=== PATIENT | female | born 1955 | race Caucasian/White ===

== ENCOUNTER 2025-02-23 16:20 | Inpatient (IN) ==
--- OUTSIDE RECORDS SUMMARY | 2025-02-23 16:23 | External Medical Summary | Summary of Care ---
Author Name Unknown Organization [facility] Address [address] [address] Phone [phone] Care Team Providers Care Molding Associate Name Role Phone Caitlyn Samuel PA-C Primary Care Provider [phone] Encounter Details Date Type Department Care Team (Late st Contact Info) Description 12/03/2024 Population Health External Data Unspecified Department Allergies Active Allergy Reactions Criticality Noted Date Comments Pollen Other (Please comment) 09/06/2022 Runny nose and stuffiness from grass documented as of this encounter (statuses as of 12/03/2024) Medications Cetirizine HCl 10 MG Oral Tablet Chewable Take 1 Tablet by mouth in the morning. Active Nystatin 477039 UNIT/GM External Powder (Nystop)Indicat ions:Candidal intertrigo Apply topically to affected area 3 times a day. Apply to skin under R breast 180 g 1 3 Active Fluticasone Propionate 50 MCG/ACT Nasal Suspension (Flonase)Indica tions:Dysfuncti on of left eustachian tube Administer 2 Sprays into each nostril in the morning. 16 g 1 4 Active predniSONE 10 MG Oral Tablet (Deltasone)Lori cations:Dysfunc tion of left eustachian tube Take 5 tabs for 2 days, 4 tabs for 2 days, 3 tabs for 2 days, 2 tabs for 2 days 1 tab for 2 days 30 Tablet 4 Active Additional Information Patient not taking.Reported on 04/12/2024 Montelukast Sodium 10 MG Oral Tablet (Singulair)Lori cations:Dysfunc tion of left eustachian tube Take 1 Tablet by mouth in the morning. 30 Tablet 4 Active documented as of this encounter (statuses as of 12/03/2024) Active Problems Problem Noted Date Diagnosed Date History of malignant melanoma 03/29/2023 Gastroesophageal reflux disease 12/12/2022 Obesity (BMI 30-39.9) 01/23/2012 Overview (01/23/2012): bmi= 36.41 01/23/12 Chronic rhinitis 01/23/2012 Chronic sinusitis 01/23/2012 Family history of diabetes mellitus 11/30/2009 Metabolic syndrome 11/30/2009 Toxic effect of venom 04/03/2009 Overview (08/16/2016): ICD-10 update of inactive term Compound nevus, lentigo like, Lateral lt mid chel k 02/05/01 08/13/2002 Cicatrix c persistent nevus, lateral lt mid back 02/12/02 08/13/2002 documented as of this encounter (statuses as of 12/03/2024) Resolved Problems Problem Noted Date Diagnosed Date Resolved Date Adrenal incidentaloma 08/12/20222022 Anxiety state 02/16/2016 03/29/2023 Cough 01/23/2012 05/24/2015 Obesity, Class II, BMI 35-39 .9, isolated (see actual BMI) 04/26/2010 02/22/2018 Overview (04/26/2010): Per Obesity Protocol, #19 TICK BITE, RIGHT FOREARM 04/03/200910/2023 ADVANCE DIRECTIVE INFORMATION 05/03/2005 09/16/2024 Overview (05/03/2005): No, Advance Directive brochure given to patient. Major depressive disorder, r ecurrent episode, mild 09/03/2003 03/29/2023 Malignant melanoma of lower extremity 08/13/2002 09/19/2022 Compound nevus, lentigo like , Medial lt mid back 02/05/01 08/13/2002 09/19/2022 Overview (09/19/2022): duplicate Malignant melanoma of lower extremity 10/13/2000 03/29/2023 documented as of this encounter (statuses as of 12/03/2024) Immunizations Name Administration Dates Next Due COVID-19 mRNA, LNP-s, No Pre serve, 2-Dose Series ([employer]) 08/27/2021,02/02/2021,01/12/2021 COVID-19, MRNA-LNP, PF, 30 M CG/0.3 mL, 12 YRS AND ABOVE, IM [facility] 09/12/2023 Covid-19, Mrna, Lnp-s, Pf, B ivalent, 30 Mcg, IM, 12 yrs and above ([employer]) 09/02/2022 Seasonal Influenza Vac., MDV , IM, 0.5 mL (Fluzone) 08/26/2014,11/12/2013,12/05/2012,09/13 Seasonal Influenza Virus Vac cine, Unspecified Formulation 08/15/2022,09/16/2021,08/25/2020,08/27,08/21/2018,08/22/2017,09/27/2016 ,09/15/2015,08/26/2014,11/12/2013,11/14,09/13/2011 Seasonal Influenza, High Dos e, Trivalent, PF, IM (Fluzone HD) 09/05/2024 Seasonal Influenza, PF, 6 M & above, IM , (FluLaval or Fluzone) 08/25/2020,08/27/2019,08/21/2018,08/2208/22/2018 Seasonal Influenza, Quadriva lent Hd (Fluzone Hd) 08/18/2023,08/15/2022,09/16/2021 Seasonal Influenza, Quadriva lent, No Preserve, IM 09/27/2016,09/15/2015 documented as of this encounter Social History Tobacco Use Types Packs/Day Years Used Date Smoking Tobacco: Never Passive Smoke Exposure: Never Smokeless Tobacco: Never Alcohol Use Standard Drinks/Week Comments Yes 0 (1 standard drink = 0.6 oz pur e alcohol) 1 weekly PHQ-2 Answer Date Recorded PHQ Adult Total Score 0 08/03/2023 Hunger Vital Sign Answer Date Recorded Within the past 12 months, y ou worried that your food would run out before you got the money to buy more. Never true 08/03/20 23 Within the past 12 months, t he food you bought just didn't last and you didn't have money to get more. Never true 08/03/2023 Childcare Answer Date Recorded Do you feel overwhelmed with taking care of a child, family member or friend? No 08/03/2023 Does your family need help f inding childcare? (Household - for ages 0-17 years) Not on file 08/03/2023 Clothing Answer Date Recorded Have you been unable to get clothing when it was really needed? No 08/03/2023 Is your family able to get c lothes or diapers when needed? (Household - for ages 0-17 years) Not on file 08/03/2023 Personal Safety Answer Date Recorded Do you feel unsafe or have concerns for your saf ety? No 08/03/2023 Do you have concerns for you r family's safety? (Household - for ages 0-17 years) Not on file 08/03/2023 Utilities Answer Date Recorded Do you have trouble paying y our heating, water, or electric bill? No 08/03/2023 Is your family able to pay t he heat, water, or electric bill? (Household - for ages 0-17 years) Not on file 08/03/2023 Does your family have access to good internet? (Household - for ages 0-17 years) Not on file 08/03/2023 Employment Status Answer Date Recorded Are you unemployed or without regular income? No 08/03/2023 Does the household have a re gular source of income? (Household - for ages 0-17 years) Not on file 08/03/2023 Social Connections Answer Date Recorded How often do you feel lonely or isolated from th ose around you? Never 08/03/2023 Financial Resource Strain Answer Date R ecorded Do you have any trouble payi ng for your medications, or do you think you might in the future? No 08/03/2023 Does your family have troubl e paying for medicine? (Household - for ages 0-17 years) Not on file 08/03/2023 Transportation Needs Answer Date Record ed READ ONLY Do you have troubl e getting a ride to medical visits or work? Never True 08/03/2023 Does your family have a hard time getting a ride to doctors visits? (Household - for ages 0-17 years) Not on file 08/03/2023 Has lack of transportation k ept you from medical appointments, meetings, work, or from getting things needed for daily living? Check all that apply. (Adult - for ages 18 years and over) Not on file 08/03/2023 Do you (or your family) have trouble finding or paying for a ride (transportation)? (Household - for ages 0-17 years) Not on file 08/03/2023 Housing Stability Answer Date Recorded Do you currently live in a s helter or have no steady place to sleep at night? No 08/03/2023 READ ONLY Do you think you a re at risk of becoming homeless? No 08/03/2023 Does your family worry about paying for your home or becoming homeless? (Household - for ages 0-17 years) Not on file 0 08/03/2023 Are you homeless or worried that you might be in the future? (Adult - for ages 18 years and over) Not on file Are you (or your family) darshan eless or worried that you might be in the future? (Household - for ages 0-17 years) Not on file Food Insecurity Answer Date Recorded Do you need food for this week? No 08/03/2023 Are you able to get enough f ood for your family? (Household - for ages 0-17 years) Not on file 08/03/2023 Does your family need food t his week? (Household - for ages 0-17 years) Not on file 08/03/2023 Do you always have enough fo od for your family? 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 Not on file Not on file documented as of this encounter Plan of Treatment Health Maintenance Due Date Last Done Comments DXA Scan 1956 Hepatitis C Screening 1974 DTap/Tdap Vaccines (1 - Tdap) 1975 Mammogram 1996 Cologuard 2001 Colonoscopy 2001 Colorectal Cancer Screening 2001 Fecal Occult Blood Test 2001 Sigmoidoscopy 2001 Pneumococcal Vaccine: 50+ Years (1 of 1 - PCV) 2006 Zoster Vaccines (1 of 2) 2006 Lipid Panel 11/30/2014 11/30/2009, 11/13, 08/21/2002 Adult Wellness Visit 2022 COVID-19 Vaccine ( season) 2024 09/12/2023, 09/02/2022, 08/27/2021, Additional history exists Depression Screening 08/03/2024 08/03/2023 Diabetes Screening 08/06/2025 08/06/2022, 11/30/2009 Pap Smear Discontinued 01/08/2013, 04/0 04/2011, 07/20/2007, Additional history exists Influenza Vaccine (FLU shot) Completed 09/05/2024, 09/05/2024, 08/18/2023, Additional history exists HPV (Gardasil) Vaccine Aged Out No lo nger eligible based on patient's age to complete this topic Hepatitis B Vaccine Aged Out No longe r eligible based on patient's age to complete this topic MENINGOCOCCAL (MENACTRA/MENVEO) Aged Out No longer eligible based on patient's age to complete this topic documented as of this encounter Medical Devices Not on filedocumented as of this encounter Care Teams Molding Associate Relationship Specialty Start Date End Date Caitlyn Samuel PA-C PCP - General Physician Advanced Practice Nurse 05/27/24 documented as of this encounter
--- OUTSIDE RECORDS SUMMARY | 2025-02-23 16:23 | External Medical Summary | Summary of Care ---
Author Name Unknown Organization [facility] Address [address] [place] [address] Phone [phone] Care Team Providers Care Evaluator Name Role Phone Caitlyn Samuel PA-C Primary Care Provider [phone] Reason for Visit * Reason Onset Date Comments Medication Administration 09/05/2024 Flu an d/or Pneumo Inj Encounter Details Date Type Department Care Team (Late st Contact Info) Description 09/05/2024 4:00 PM EDT Immunization Ancillary Department, [place] [address] [place] [address] [facility] [address] [place] [address] Need for prophylactic vaccination and inoculation against influenza* Allergies Active Allergy Reactions Criticality Noted Date Comments Pollen Other (Please comment) 09/06/2022 Runny nose and stuffiness from grass documented as of this encounter (statuses as of 09/05/2024) Medications Medication Sig Dispensed Refills Start Date End Date Status Cetirizine HCl 10 MG Oral Tablet Chewable Take 1 Tablet by mouth in the morning. Active Nystatin 478256 UNIT/GM External Powder (Nystop)Indications :Candidal intertrigo Apply topically to affected area 3 times a day. Apply to skin under R breast 180 g 1 08/03/2023 Active Fluticasone Propionate 50 MCG/ACT Nasal Suspension (Flonase)Indication s:Dysfunction of left eustachian tube Administer 2 Sprays into each nostril in the morning. 16 g 1 01/08/2024 Active predniSONE 10 MG Oral Tablet (Deltasone)Indicati ons:Dysfunction of left eustachian tube Take 5 tabs for 2 days, 4 tabs for 2 days, 3 tabs for 2 days, 2 tabs for 2 days 1 tab for 2 days 30 Tablet 01/08/2024 Active Additional Information Patient not taking.Reported on 04/12/2024 Montelukast Sodium 10 MG Oral Tablet (Singulair)Indicati ons:Dysfunction of left eustachian tube Take 1 Tablet by mouth in the morning. 30 Tablet 01/08/2024 Active documented as of this encounter (statuses as of 09/05/2024) Active Problems Problem Noted Date Diagnosed Date History of malignant melanoma 03/29/2023 Gastroesophageal reflux disease 12/12/2022 Obesity (BMI 30-39.9) 01/23/2012 Overview: bmi= 36.41 01/23/12 Chronic rhinitis 01/23/2012 Chronic sinusitis 01/23/2012 Family history of diabetes mellitus 11/30/2009 Metabolic syndrome 11/30/2009 Toxic effect of venom 04/03/2009 Overview: ICD-10 update of inactive term ADVANCE DIRECTIVE INFORMATION 05/03/2005 Overview: No, Advance Directive brochure given to patient. Compound nevus, lentigo like, Lateral lt mid chel k 02/05/01 08/13/2002 Cicatrix c persistent nevus, lateral lt mid back 02/12/02 08/13/2002 documented as of this encounter (statuses as of 09/05/2024) Resolved Problems Problem Noted Date Diagnosed Date Resolved Date Adrenal incidentaloma 08/12/20222022 Anxiety state 02/16/2016 03/29/2023 Cough 01/23/2012 05/24/2015 Obesity, Class II, BMI 35-39 .9, isolated (see actual BMI) 04/26/2010 02/22/2018 Overview: Per Obesity Protocol, #19 TICK BITE, RIGHT FOREARM 04/03/200910/2023 Major depressive disorder, r ecurrent episode, mild 09/03/2003 03/29/2023 Malignant melanoma of lower extremity 08/13/2002 09/19/2022 Compound nevus, lentigo like , Medial lt mid back 02/05/01 08/13/2002 09/19/2022 Overview: duplicate Malignant melanoma of lower extremity 10/13/2000 03/29/2023 documented as of this encounter (statuses as of 09/05/2024) Immunizations Name Administration Dates Next Due COVID-19 mRNA, LNP-s, No Pre serve, 2-Dose Series ([employer]) 08/27/2021,02/02/2021,01/12/2021 COVID-19, MRNA-LNP, 23-24, P F, 30 MCG/0.3 mL, 12 YRS AND ABOVE, IM ([facility]) 09/12/2023 Covid-19, Mrna, Lnp-s, Pf, B ivalent, 30 Mcg, IM, 12 yrs and above ([employer]) 09/02/2022 Seasonal Influenza Vac., MDV , IM, [...] y our heating, water, or electric bill? (Adult - for ages 18 years and over) Not on file 08/07/2024 Is your family able to pay t he heat, water, or electric bill? (Household - for ages 0-17 years) Not on file 08/07/2024 Does your family have access to good internet? (Household - for ages 0-17 years) Not on file 08/07/2024 Employment Status Answer Date Recorded Are you unemployed or without regular income? No 08/03/2023 Does the household have a re gular source of income? (Household - for ages 0-17 years) Not on file 08/03/2023 Social Connections Answer Date Recorded How often do you feel lonely or isolated from those around you? (Adult - for ages 18 years and over) Not on file 08/07/2024 Financial Resource Strain Answer Date R ecorded [...] ages 0-17 years) Not on file 08/03/2023 Sex and Gender Information Value Date Recorded Sex Assigned at Female 08/03/2023 9:23 AM EDT Gender Identity Female 08/03/2023 9:23 AM EDT Sexual Orientation Straight 08/03/2023 9: 23 AM EDT Job Start Date Occupation Industry Not on file Not on file Not on file documented as of this encounter Patient Instructions * Patient Instructions* Ivet Bejarano LPN - 09/05/2024 10:53 AM EDT ~~PATIENT INSTRUCTIONS FOR FLU SHOT~~ Possible side effects of influenza vaccine, (flu shot), are usually mild and include: 1. Soreness or redness at injection site 2. Low grade fever 3. Body aches You may use Tylenol/Acetaminophen as needed for these symptoms. LET YOUR DOCTOR KNOW IMMEDIATELY IF YOU HAVE DIFFICULTY BREATHING OR SWALLOWING, EXPERIENCE ITCHINGOF FEET OR HANDS, HAVE SWELLING OF EYES, FACE OR INSIDE OF NOSE. documented in this encounter Progress Notes * Ivet Bejarano LPN - 09/05/2024 10:53 AM EDT PRE - ADMINISTRATION DOCUMENTATION Are you experiencing any cold symptoms or fever? No Have you had Guillain-Branford Syndrome (an illness that causes paralysis) within the last 6 weeks? No Have you had the flu shot in the past? YES Have you ever had a reaction to the flu shot? No Ivet Bejarano LPN, 09/05/2024 10:53 AM Immunization Administration Documentation Time Out Procedure Performed: Yes Patient Identified (Ask Name/Date of ): Yes Does the patient have a fever greater than 101 degrees today? No Patient allergic to latex? No VFC Stock: No Immunization(s) verified: Yes, Immunization Name: Flu, VIS Sheet(s) given: Yes Verified Side and Site: Yes Verified Shot(s) with Parent(s)/Patient: Yes documented in this encounter Plan of Treatment Health Maintenance Due Date Last Done Comments DXA Scan 1956 Hepatitis C Screening 1974 DTap/Tdap Vaccines (1 - Tdap) 1975 Mammogram 1996 Cologuard 2001 Colonoscopy 2001 Colorectal Cancer Screening 2001 Fecal Occult Blood Test 2001 Sigmoidoscopy 2001 Zoster Vaccines (1 of 2) 2006 Lipid Panel 11/30/2014 11/30/2009, 11/13, 08/21/2002 Pneumococcal Vaccine: 65+ Years (1 of 1 - PCV) 2021 Adult Wellness Visit 2022 COVID-19 Vaccine ( season) 2024 09/12/2023, 09/02/2022, 08/27/2021, Additional history exists Depression Screening 08/03/2024 08/03/2023 Diabetes Screening 08/06/2025 08/06/2022, 11/30/2009 Pap Smear Discontinued 01/08/2013, 04/0 04/2011, 07/20/2007, Additional history exists Influenza Vaccine (FLU shot) Completed 09/05/2024, 08/18/2023, 08/15/2022, Additional history exists HPV (Gardasil) Vaccine Aged [...] Not on filedocumented as of this encounter Visit Diagnoses Diagnosis Need for prophylactic vaccination and inoculation against influenza- Primary documented in this encounter Care Teams Evaluator Relationship Specialty Start Date End Date Caitlyn Samuel PA-C [address] [place] [address] PCP - General Physician Wood Pattern Maker 05/27/24 documented as of this encounter
--- NOTE | 2025-02-23 16:34 | Emergency Department Note ---
ED Provider Note History of Present Illness Chief Complaint: Abdominal Pain Stated Complaint: ABDOMINAL PAIN Time Seen by Provider: 02/23/25 16:28 Source: patient Mode of arrival: ambulatory Limitations: no limitations This patient is a 69-year-old female who presents to the emergency department for evaluation of abdominal pain. Pain started around 10 PM last night. She states that she was laying in bed and is not sure if she fell asleep and was woken up or if she was never able to fall asleep. She reports pain is in the upper abdomen radiating into the right side and radiates through to the back. Pain is worse with palpation. Pain is continued throughout the day today. She rates her current discomfort a 7/10. She has had 1 episode of vomiting early this morning. No changes in bowel movements, urinary symptoms, fever/chills. No chest pain or shortness of breath. She does report she had pizza for dinner before bed last night. She has a history of GERD. She has taken Pepcid and tried Tums without relief. She denies any history of abdominal surgeries. Home Medications Medication Instructions Recorded Confirmed Type Nature's Bounty Stress And Anxiety 1 tab PO BID 10/21/22 10/21/22 History famotidine 20 mg tablet 20 mg PO HS PRN Acid Reflux 10/21/22 10/21/22 History Allergies Allergy/AdvReac Type Severity Reaction Status Date / Time No Known Allergies Allergy Mild Verified 10/21/22 06:42 Past Med/Surg History Problem List (Updated 02/23/25 @ 20:02 by Tavo Riggs PA-C) Appendicitis No significant past surgical history No chronic diseases present Medical History Chest wall pain Family History Other Cancer Social History Smoking Status: Never smoker Preferred Language: Mauritian Feels Safe at Home: Yes Physical Exam Vital Signs Vital Signs - 24 hr 02/23/25 16:23 02/23/25 16:45 02/23/25 17:21 Temperature 36.8 C Temperature Source Skin Pulse Rate 95 H 78 Pulse Rate from SpO2 Sensor 76 Respiratory Rate 20 15 Blood Pressure 152/90 H 136/61 Blood Pressure Mean 110 86 Pulse Oximetry 98 97 97 Oxygen Delivery Method Room Air Sepsis Recent Fever Within 48 Hours No Sepsis New/Unexplained Change in Mental Status N/A Sepsis Action Taken by Nursing No Action Required 02/23/25 17:22 02/23/25 18:00 02/23/25 18:30 Temperature Temperature Source Pulse Rate 78 82 79 Pulse Rate from SpO2 Sensor 82 81 Respiratory Rate 19 12 Blood Pressure 140/87 113/69 Blood Pressure Mean 99 83 Pulse Oximetry 98 98 Oxygen Delivery Method Sepsis Recent Fever Within 48 Hours Sepsis New/Unexplained Change in Mental Status Sepsis Action Taken by Nursing VITALS: Vitals are noted on the nurse's note and reviewed by myself. GENERAL: This is a 69-year-old female, in no acute distress, well-developed well-nourished. SKIN: The skin was without rashes. EYES: Pupils equal round and reactive to light and accommodation. MOUTH: Mucous membranes moist. NECK: Supple without nuchal rigidity. HEART: Regular rate and rhythm without murmurs gallops or rubs. LUNGS: Clear to auscultation bilaterally without wheezes, rales or rhonchi. ABDOMEN: Positive bowel sounds x 4. Soft, moderate tenderness to palpation in the epigastric region. Mild tenderness in the right upper quadrant. No guarding or rebound tenderness. NEURO: Patient was alert and oriented to person place and time. Course Administered Medications Piperacillin Sod/Tazobactam Sod (Zosyn) 4.5 gm in 100 mls @ 200 mls/hr IV NOW ONE; Protocol Stop: 02/23/25 20:19 Last Admin: 02/23/25 19:59 Dose: 200 mls/hr Documented By: MARILIA Discontinued Medications Sodium Chloride (Nss) 1,000 mls @ 999 mls/hr IV .Q1H1M STA Stop: 02/23/25 17:45 Last Infusion: 02/23/25 18:11 Dose: Infused Documented By: Admin: 02/23/25 17:13 Dose: 999 mls/hr Documented By: MARILIA Famotidine (Pepcid 20mg Iv Push) 20 mg in 5 mls @ 2.5 mls/min IV NOW STA Stop: 02/23/25 18:40 Last Admin: 02/23/25 18:44 Dose: 2.5 mls/min Documented By: MARILIA Ioversol (Optiray 320 100ml) 90 ml IV ONCE ONE Stop: 02/23/25 17:52 Last Admin: 02/23/25 17:51 Dose: 90 ml Documented By: KERRI Ketorolac Tromethamine (Ketorolac Tromethamine 15 Mg/Ml Vial) 10 mg IV NOW ONE Stop: 02/23/25 16:46 Last Admin: 02/23/25 17:13 Dose: 10 mg Documented By: MARILIA Ondansetron HCl (Ondansetron Inj 2 Mg/Ml 2 Ml Vial) 4 mg IV NOW STA Stop: 02/23/25 16:46 Last Admin: 02/23/25 17:13 Dose: Not Given Documented By: MARILIA Medical Decision Making Differential Diagnosis Appendicitis, ovarian cyst, ovarian torsion, TOA, PID, infections, diverticulitis, UTI, obstruction, mesenteric ischemia, aortic pathology, inflammatory bowel disease, renal colic, PUD, pancreatitis, biliary pathology, hernia, volvulus, constipation, as well as other pathologies. Laboratory Data Attestation: I reviewed the patient's lab results. 02/23/25 17:08 02/23/25 17:08 Lab Results 02/23/25 Range/Units 17:08 WBC 9.19 (4.8-10.8) K/ul RBC 4.42 (4.20-5.40) M/uL Hgb 13.3 (12.0-16.0) g/dl Hct 39.6 (37.0-47.0) % MCV 89.6 (80.0-100.0) fL MCH 30.1 (25.0-34.0) pg MCHC 33.6 (32.0-36.0) g/dL RDW Std Deviation 44.8 (36.4-46.3) fL RDW Coeff of Lizzie 13.6 (11.5-14.5) % Plt Count 255 (130-400) K/uL MPV 10.7 (9.4-12.4) fL Immature Gran % (Auto) 0.2 % Neut % (Auto) 70.1 % Lymph % (Auto) 21.0 % [place] % (Auto) 6.6 % Eos % (Auto) 1.7 % Baso % (Auto) 0.4 % Neut # (Auto) 6.43 (1.40-6.50) K/uL Lymph # (Auto) 1.93 (1.20-3.40) K/uL [place] # (Auto) 0.61 H (0.11-0.59) K/uL Eos # (Auto) 0.16 (0.00-0.50) K/uL Baso # (Auto) 0.04 (0.00-0.20) K/uL Immature Gran # (Auto) 0.02 (0.01-0.20) K/uL Sodium 140 (136-145) mmol/L Potassium 3.9 (3.5-5.1) mmol/L Chloride 109 H (98-107) mmol/L Carbon Dioxide 27 (21-32) mmol/L Anion Gap 4 (3-11) BUN 19 (6-23) mg/dl Creatinine 0.84 (0.6-1.2) mg/dl Est Cr Clr Drug Dosing 60.7 ml/min eGFR 75.65 BUN/Creatinine Ratio 22.6 H (10-20) Glucose 102 H (70-99(Fasting)) mg/dl Calcium 9.5 (8.6-10.3) mg/dl Total Bilirubin 0.7 (0.2-1.0) mg/dl AST 15 (13-39) U/L ALT 17 (7-52) U/L Alkaline Phosphatase 71 (34-104) U/L Total Protein 7.2 (6.0-8.3) gm/dl Albumin 4.3 (3.4-5.0) gm/dl Globulin 2.9 (2.5-4.0) gm/dl Albumin/Globulin Ratio 1.5 (0.9-2) Lipase 12 (11-82) U/L Urine Color Yellow Urine Appearance Clear (Clear) Urine pH 5.0 (4.5-7.5) Ur Specific [place] 1.015 (1.000-1.030) Urine Protein Negative (Negative) Urine Glucose (UA) Negative (Negative) Urine Ketones Negative (Negative) Urine Blood Negative (Negative) Urine Nitrite Negative (Negative) Urine Bilirubin Negative (Negative) Urine Urobilinogen Negative (Negative) Ur Leukocyte Esterase Trace H (Negative) Urine WBC (Auto) 0-5 (0-5) /hpf Urine RBC (Auto) 0-2 (0-2) /hpf U Hyaline Cast (Auto) 0-2 (0-2) /lpf U Epithel Cells (Auto) 0-2 (0-2) /hpf Urine Bacteria (Auto) None Seen (None Seen) Imaging Data Attestation: I personally reviewed and interpreted this imaging study as follows: Radiologist's Impression: Abdomen/Pelvis CT 02/23/25 16:45 CT ABDOMEN and PELVIS with INTRAVENOUS CONTRAST HISTORY: Abdominal pain TECHNIQUE: CT abdomen and pelvis with contrast. IV CONTRAST: 100 mL of OMNIPAQUE 300 ENTERIC CONTRAST: Not Given COMPARISON: CT abdomen pelvis October 21, 2022. FINDINGS: LOWER CHEST: Unremarkable LIVER: No focal lesion identified. Hepatic steatosis and hepatomegaly. GALLBLADDER/BILIARY: Cholelithiasis. No evidence of cholecystitis on CT. No abnormal biliary dilatation. SPLEEN: Unremarkable. PANCREAS: Unremarkable. ADRENALS: Hypodense right adrenal nodule measuring 1.7 cm is unchanged and likely represents an adenoma.. KIDNEYS: Unremarkable. No stones or hydronephrosis identified. PERITONEUM/RETROPERITONEUM. No lymphadenopathy by size criteria. No aortic aneurysm. GASTROINTESTINAL: No obstruction. Inflamed appendix measuring up to 1.1 cm in diameter with mucosal hyperenhancement and periappendiceal fat stranding. Colonic diverticulosis without evidence of diverticulitis REPRODUCTIVE: No suspicious pelvic mass detected BONES: No acute findings. IMPRESSION: Acute appendicitis without evidence of complication. Notification to clinician of alert: [facility] was notified about above findings by phone on February 23, 2025 at 7:30 PM by James Robertson MD. Electronically signed by James Robertson 02-23-2025 7:30 PM Gallbladder Ultrasound 02/23/25 18:39 ABDOMINAL ULTRASOUND LIMITED INDICATION: Abdominal pain. TECHNIQUE: Limited upper quadrant ultrasound examination of the abdomen. COMPARISON: CT abdomen pelvis from the same day. FINDINGS: LIVER: Size: Enlarged, measuring up to 17.5 cm in craniocaudal dimension. Echogenicity: Increased Surface nodularity: None Mass: None identified. BILE DUCTS: Intrahepatic ducts: Nondilated Common bile duct diameter: 4 mm GALLBLADDER: Normally distended containing shadowing stones. No wall thickening or pericholecystic fluid. Sonographic Hubbard sign was negative as reported by the centrifuge operator. PANCREAS: Visualized portions appear unremarkable RIGHT KIDNEY LENGTH: 7.3 cm No shadowing stones or hydronephrosis identified. ASCITES: None identified. IMPRESSION: Cholelithiasis without sonographic evidence of cholecystitis. Echogenic and enlarged liver suggesting a parenchymal process including but not limited to steatosis. Electronically signed by James Robertson 02-23-2025 7:49 PM MDM Narrative This patient is a 69-year-old female who presents to the Emergency Department complaining of right upper quadrant abdominal pain. She is well-appearing on exam, hemodynamically stable, afebrile. Labs revealed no leukocytosis, anemia or concerning electrolyte abnormalities. Urinalysis unremarkable. CT showed evidence of acute appendicitis. I did speak with the radiologist regarding the CT read. Patient informed of the findings. I spoke with general surgery, Gorge Riggs PA-C who will evaluate the patient. Patient will be taken to the OR for surgical management. Impression Acute appendicitis Discharge Plan Visit Data Chief Complaint: Abdominal Pain Stated Complaint: ABDOMINAL PAIN ED Provider: Raman Morrow ED Midlevel Provider: Camryn Paulino Discharge Problem: Acute appendicitis Forms Stand Alone Forms: My [facility] Prescriptions Prescriptions: No Action famotidine 20 mg tablet 20 mg PO HS PRN (Reason: Acid Reflux) Nature's Bounty Stress And Anxiety 1 tab PO BID Referrals Referrals: Caitlyn Samuel PA-C [Primary Care Provider] - Discharge Problem: Acute appendicitis Qualifiers: Acute appendicitis type: with localized peritonitis Appendicitis gangrene presence: without gangrene Appendicitis perforation presence: without perforation Appendicitis abscess presence: without abscess Qualified Code(s): K 35.30 - Acute appendicitis with localized peritonitis, without perforation or gangrene
[2025-02-23] MEDS: ONDANSETRON INJ 2 MG/ML 2 ML VIAL IV STA (17:13)
[2025-02-23] MEDS: KETOROLAC TROMETHAMINE 15 MG/ML VIAL IV ONE (17:13)
[2025-02-23] MEDS: SODIUM CHLORIDE 0.9% 1,000 ML IV STA (17:13)
[2025-02-23 17:19] LABS: Basophils # (auto) 0.04 K/uL (0.00-0.20); Basophils % (auto) 0.4 %; Eosinophils # (auto) 0.16 K/uL (0.00-0.50); Eosinophils % (auto) 1.7 %; Hematocrit (blood only) 39.6 % (37.0-47.0); Hemoglobin 13.3 g/dl (12.0-16.0); Immature Granulocytes # (auto) 0.02 K/uL (0.01-0.20); Immature Granulocytes % (auto) 0.2 %; Lymphocytes # (auto) 1.93 K/uL (1.20-3.40); Mean Corpuscular Hemoglobin 30.1 pg (25.0-34.0); Mean Corpuscular Hgb Conc 33.6 g/dL (32.0-36.0); Mean Corpuscular Volume 89.6 fL (80.0-100.0); Mean Platelet Volume 10.7 fL (9.4-12.4); Monocytes # (auto) 0.61 K/uL (0.11-0.59); Monocytes % (auto) 6.6 %; Neutrophils # (auto) 6.43 K/uL (1.40-6.50); Neutrophils % (auto) 70.1 %; Platelet Count 255 K/uL (130-400); RDW Coefficient of Variation 13.6 % (11.5-14.5); RDW Standard Deviation 44.8 fL (36.4-46.3); Red Blood Count 4.42 M/uL (4.20-5.40); White Blood Count 9.19 K/ul (4.8-10.8)
[2025-02-23 17:31] LABS: Appearance Urine Clear (Clear); Bacteria Urine Automated None Seen (None Seen); Bilirubin Urine Negative (Negative); Blood Urine Negative (Negative); Cast Urine Automated 0-2 /lpf (0-2); Color Urine Yellow; Epithelial Cell Urine Auto 0-2 /hpf (0-2); Glucose Urine UA Negative (Negative); Ketones Urine Negative (Negative); Leukocyte Esterase Urine Trace (Negative); Nitrite Urine Negative (Negative); Protein Urine Negative (Negative); RBC Urine Automated 0-2 /hpf (0-2); Specific Gravity Urine 1.015 (1.000-1.030); Urobilinogen Urine Negative (Negative); WBC Urine Automated 0-5 /hpf (0-5)
[2025-02-23 17:38] LABS: Albumin Globulin Ratio 1.5 (0.9-2); Albumin Level 4.3 gm/dl (3.4-5.0); BUN Creatinine Ratio 22.6 (10-20); Bilirubin,Total 0.7 mg/dl (0.2-1.0); Calcium 9.5 mg/dl (8.6-10.3); Creatinine Clr Calc Pharmacy 60.7 ml/min; Globulin 2.9 gm/dl (2.5-4.0); Potassium 3.9 mmol/L (3.5-5.1); Total Protein 7.2 gm/dl (6.0-8.3)
[2025-02-23] MEDS: OPTIRAY 320 100ml IV ONE (17:51)
[2025-02-23] MEDS: FAMOTIDINE 20MG IV PUSH 20 MG/5 ML SYR IV STA (18:44)
--- NOTE | 2025-02-23 19:31 | CT Scan Report ---
CT ABDOMEN and PELVIS with INTRAVENOUS CONTRAST HISTORY: Abdominal pain TECHNIQUE: CT abdomen and pelvis with contrast. IV CONTRAST: 100 mL of OMNIPAQUE 300 ENTERIC CONTRAST: Not Given COMPARISON: CT abdomen pelvis October 21, 2022. FINDINGS: LOWER CHEST: Unremarkable LIVER: No focal lesion identified. Hepatic steatosis and hepatomegaly. GALLBLADDER/BILIARY: Cholelithiasis. No evidence of cholecystitis on CT. No abnormal biliary dilatation. SPLEEN: Unremarkable. PANCREAS: Unremarkable. ADRENALS: Hypodense right adrenal nodule measuring 1.7 cm is unchanged and likely represents an adenoma.. KIDNEYS: Unremarkable. No stones or hydronephrosis identified. PERITONEUM/RETROPERITONEUM. No lymphadenopathy by size criteria. No aortic aneurysm. GASTROINTESTINAL: No obstruction. Inflamed appendix measuring up to 1.1 cm in diameter with mucosal hyperenhancement and periappendiceal fat stranding. Colonic diverticulosis without evidence of diverticulitis REPRODUCTIVE: No suspicious pelvic mass detected BONES: No acute findings. IMPRESSION: Acute appendicitis without evidence of complication. Notification to clinician of alert: [facility] ED was notified about above findings by phone on February 23, 2025 at 7:30 PM by James Robertson MD. Electronically signed by James Robertson 02-23-2025 7:30 PM
--- NOTE | 2025-02-23 19:50 | Ultrasound Report ---
ABDOMINAL ULTRASOUND LIMITED INDICATION: Abdominal pain. TECHNIQUE: Limited upper quadrant ultrasound examination of the abdomen. COMPARISON: CT abdomen pelvis from the same day. FINDINGS: LIVER: Size: Enlarged, measuring up to 17.5 cm in craniocaudal dimension. Echogenicity: Increased Surface nodularity: None Mass: None identified. BILE DUCTS: Intrahepatic ducts: Nondilated Common bile duct diameter: 4 mm GALLBLADDER: Normally distended containing shadowing stones. No wall thickening or pericholecystic fluid. Sonographic Hubbard sign was negative as reported by the blood tester. PANCREAS: Visualized portions appear unremarkable RIGHT KIDNEY LENGTH: 7.3 cm No shadowing stones or hydronephrosis identified. ASCITES: None identified. IMPRESSION: Cholelithiasis without sonographic evidence of cholecystitis. Echogenic and enlarged liver suggesting a parenchymal process including but not limited to steatosis. Electronically signed by James Robertson 02-23-2025 7:49 PM
[2025-02-23] MEDS: PIPERACILLIN/TAZOBACTAM 4.5 GM/100 ML BAG IV ONE (19:59)
[2025-02-23] MEDS ORDERED: MoRPHine SULFATE 4 MG/ML 1 ML CARP\\VIAL IV PRN (20:03)
--- NOTE | 2025-02-23 20:03 | History & Physical Report ---
Date of Service February 23, 2025 Assessment & Plan (1) Appendicitis: Plan: Due to the patient's presenting symptomatology as well as findings on imaging should be admitted the surgical service proceeding as follows: N.p.o. status will be implemented Will administer antibiotics in form of Zosyn Will provide IV fluids for hydration Analgesia be provided Antiemetics we provided We tenably planning on having the patient undergo an appendectomy with Dr. Bonilla this evening. A preoperative chest x-ray will be obtained Coagulation studies has not been checked and we will add these to her current labs Will utilize SCDs for DVT prevention, no chemical means due to planned surgery Additional recommendations to be forthcoming based on her clinical course as unfolds She will be a level 1 full code Addendum: CXR does not show pneumonia. Coags normal. History of Present Illness Chief Complaint: Abdominal pain Primary Care Provider: Caitlyn Samuel PA-C This is a 69-year-old female who presented the emergency department secondary abdominal pain. Patient notes that since 10:30 PM on 02/22/2025 she has been having periumbilical abdominal pain without radiation or modifying factors. She did have 1 bout of emesis at approximate 4:00 AM the morning of 02/23/2025. She has not had any fevers, shakes, or chills. Her most recent oral intake was at approximately 11:00 AM on 02/23/2025 when she ate a piece of toast. She denies any prior abdominal surgeries. Upon arrival to the emergency department the patient has had labs and imaging which I independently reviewed. A gallbladder ultrasound showed gallstones without evidence of cholecystitis. She also had a CT scan of the abdomen pelvis which also demonstrated gallstones without evidence of cholecystitis. The CT scan did demonstrate the patient had an inflamed appendix which was dilated to approximately 1.1 cm with some periappendiceal fat stranding. There is no evidence of appendiceal rupture or abscess. Labs include a CBC where white blood cell count, hemoglobin, macro, and platelet count were normal. Chemistry profile showed sodium and potassium were normal. Her BUN and creatinine were both normal. There is no elevation of LFTs or lipase. Urinalysis had trace leukocyte Estrace but was otherwise not indicative of infection. An EKG showed sinus rhythm. There were some PVCs but there were no changes indicative of acute ischemia. At the time of my interview the patient was resting comfortably in bed and she was in no distress. Allergies Allergy/AdvReac Type Severity Reaction Status Date / Time No Known Allergies Allergy Mild Verified 10/21/22 06:42 Home Medications Medication Instructions Recorded Confirmed Type Nature's Bounty Stress And Anxiety 1 tab PO BID 10/21/22 10/21/22 History famotidine 20 mg tablet 20 mg PO HS PRN Acid Reflux 10/21/22 10/21/22 History Past Med/Surg History Problem List Appendicitis No significant past surgical history No chronic diseases present Medical History Chest wall pain Family History Other Cancer Social History Smoking Status: Never smoker Preferred Language: Slovak Feels Safe at Home: Yes Review of Systems Review of Systems: All systems reviewed & are unremarkable except as noted in HPI & below Physical Exam Constitutional: WD/WN, vitals as above Eyes: no conjunctival abnormality Wears glasses ENMT: Ears: no hearing impairment and no external ear abnormality Mouth: no oropharynx abnormality Neck: trachea midline Respiratory: normal respiratory effort; no respiratory distress and no labored breathing Cardiovascular: Rate/Rhythm: regular rate and regular rhythm Gastrointestinal (Abdomen): Abdomen is soft without distention. There is no rebound tenderness or guarding. Patient did have significant pain with palpation in the periumbilical region. There is little in the way of right lower quadrant abdominal pain. Musculoskeletal: No calf tenderness Skin: no rashes Neurologic: moves all extremities Psychiatric: A+Ox3, euthymic affect Results & Data Results & Data Vital Signs (Past 12 Hours) Vital Signs Temp Pulse Resp BP Pulse Ox O2 Del Method 02/23/25 18:30 79 12 113/69 98 02/23/25 18:00 82 19 140/87 98 02/23/25 17:22 78 02/23/25 17:21 78 15 136/61 97 02/23/25 16:45 97 Room Air 02/23/25 16:23 36.8 C 95 H 20 152/90 H 98 Supervising Physician Co-Signing Physician Notes I have seen this patient, reviewed her imaging personally and I agree with this plan. Her appendix sits towards the central abdomen and is appears consistent with the patient's symptoms. I have explained the details of the procedure to her including the risks, benefits and alternatives to this procedure. She has decided to move forward with appendectomy at this time. She expressed understanding of this explanation and all of her questions were answered. Consent was obtained. PG Care Time/CCT Total # of Minutes Spent Total Time Spent with Patient: Total time spent is greater than 50% in coordination of care (as documented) at patient's floor/unit and/or counseling patient: Coding Level of Care Code 62942 INT INP/OBS CARE MIN Diagnoses Appendicitis K37
[2025-02-23] MEDS: SODIUM CHLORIDE 0.9% 1,000 ML IV SCH (20:06)
--- NOTE | 2025-02-23 20:18 | Emergency Department Note ---
ED Visit Note I was consulted in regards to the patient's presentation and plan of care by the Advanced Practice Provider. I engaged in a detailed/meaningful discussion with the Advanced Practice Provider in regards to this patient's workup and plan of care. I performed a substantiative portion of the medical decision making following discussion with the Advanced Practice Provider. Please see the Advanced Practice Provider's separate documentation for full details of the patient's visit. I agree with the assessment and plan of Camryn Paulino PA-C. Raman Morrow, DO Emergency Medicine .
[2025-02-23 20:20] LABS: Partial Thromboplastin Ratio 0.9; Partial Thromboplastin Time 25 Seconds (21-31); Prothrombin Time 11.2 Seconds (9.0-12.0)
[2025-02-23] MEDS ORDERED: PROPOFOL IV EMULSION 10 MG/ML 20 ML VIAL IV ONE (20:36)
[2025-02-23] MEDS ORDERED: LIDOCAINE 2% 2 ML VIAL/AMP(20MG/ML) INFIL ONE (20:36)
[2025-02-23] MEDS ORDERED: ONDANSETRON INJ 2 MG/ML 2 ML VIAL ONE (20:36)
[2025-02-23] MEDS ORDERED: ROCURONIUM BROMIDE 10 MG/ML 5 ML VIAL IV ONE (20:36)
[2025-02-23] MEDS ORDERED: fentaNYL citrate PF 100 MCG/2 ML VIAL ONE ×2 (20:37→21:56)
--- NOTE | 2025-02-23 20:39 | Anesthesiology Consultation ---
Date of Service February 23, 2025 Assessment & Plan Chart Review Chart Review: Acceptable Risk for Surgery and Patient NOT seen in Pre Admission Testing Consults Requested none ASA ASA2E Proposed Anesthesia Anesthesia Type: General Risk / Benefits Reviewed With: PT / POA / Parent / Guardian, Accepts Plan and Informed Consent Obtained History Surgery Operation Date: 02/23/25 21:00 Proposed Procedures p Laparoscopic Appendectomy - Bird Cardoza, Height/Weight Height: 5 ft Weight: 81.6 kg Allergies Allergy/AdvReac Type Severity Reaction Status Date / Time No Known Allergies Allergy Mild Verified 10/21/22 06:42 Medications Home Medications Medication Instructions Recorded Confirmed Last Taken Nature's Bounty Stress And Anxiety 1 tab PO BID 10/21/22 10/21/22 10/21/22 famotidine 20 mg tablet 20 mg PO HS PRN Acid Reflux 10/21/22 10/21/22 10/20/22 Active Medications Generic Name Dose Route Start Last Admin Trade Name Freq PRN Reason Stop Dose Admin Sodium Chloride 1,000 mls @ 100 mls/hr 02/23/25 20:00 02/23/25 20:06 Nss IV 02/24/25 19:59 100 mls/hr .Q10H VINAYAK Administration Past Medical History Medical History Chest wall pain Exercise / Class Metabolic Activity II 4-5 Yardwork/Stairs/Walk up hill Past Family History Family History Other Cancer Past Anesthesia History No Hx of Anesthesia Complications and No Family Hx of Anesthesia Complications History of PONV No Hx of PONV and No Hx of Motion Sickness Social History Smoking Status: Never smoker Review of Systems ROS Unobtainable: All systems reviewed & are unremarkable except as noted in HPI & below Physical Exam Vital Signs Last Vital Signs Temp 36.7 C 02/23/25 20:10 Pulse 82 02/23/25 20:10 Resp 21 02/23/25 20:10 BP 126/77 02/23/25 20:10 Pulse Ox 98 02/23/25 20:10 O2 Del Method Room Air 02/23/25 20:10 ENMT Mouth: no TMJ abnormality Thyromental Distance: > or= 3.5 Finger Breadths Mallampati Class: II Neck normal visual inspection and trachea midline; neck extension not limited Respiratory normal respiratory effort Auscultation: lungs clear to auscultation bilaterally Cardiovascular Rate/Rhythm: regular rate and regular rhythm Heart Sounds: no murmur Musculoskeletal Spine: normal cervical ROM Extremities: full ROM of extremities Neurologic moves all extremities Psychiatric Orientation: alert and oriented x 3 Testing Laboratory Results 02/23/25 17:08 02/23/25 17:08 PT 11.2 Seconds (9.0-12.0) 02/23/25 17:08 INR 1.0 (0.9-1.1) 02/23/25 17:08 APTT 25 Seconds (21-31) 02/23/25 17:08 Urine Color Yellow 02/23/25 17:08 Urine Appearance Clear (Clear) 02/23/25 17:08 Urine pH 5.0 (4.5-7.5) 02/23/25 17:08 Ur Specific [place] 1.015 (1.000-1.030) 02/23/25 17:08 Urine Protein Negative (Negative) 02/23/25 17:08 Urine Glucose (UA) Negative (Negative) 02/23/25 17:08 Urine Ketones Negative (Negative) 02/23/25 17:08 Urine Nitrite Negative (Negative) 02/23/25 17:08 Ur Leukocyte Esterase Trace (Negative) H 02/23/25 17:08 Urine WBC (Auto) 0-5 /hpf (0-5) 02/23/25 17:08 Urine RBC (Auto) 0-2 /hpf (0-2) 02/23/25 17:08 U Hyaline Cast (Auto) 0-2 /lpf (0-2) 02/23/25 17:08 U Epithel Cells (Auto) 0-2 /hpf (0-2) 02/23/25 17:08 Urine Bacteria (Auto) None Seen (None Seen) 02/23/25 17:08 Electrocardiogram Date: 02/23/25 Findings: + NSR @ (86) PVCs
[2025-02-23] MEDS ORDERED: SUGAMMADEX SODIUM 200 MG/2 ML VIAL IV ONE ×2 (20:47→22:38)
[2025-02-23] MEDS ORDERED: MIDAZOLAM HCL 1 MG/ML 2ML VIAL ONE (20:47)
[2025-02-23] MEDS ORDERED: KETOROLAC 30 MG/ML VIAL ONE (20:52)
[2025-02-23] MEDS ORDERED: ATROPINE SULFATE 0.1 MG/ML 10ML SYR IV PRN (20:57)
[2025-02-23] MEDS ORDERED: fentaNYL citrate PF 100 MCG/2 ML VIAL IV PRN (20:57)
[2025-02-23] MEDS ORDERED: ONDANSETRON INJ 2 MG/ML 2 ML VIAL IV PRN (20:57)
[2025-02-23] MEDS ORDERED: ePHEDrine sulfate 50 MG/ML AMP IV PRN (20:57)
--- NOTE | 2025-02-23 21:11 | XRay Report ---
Exam(s): XR CXR 1 VIEW EXAM: XR Chest, 1 View CLINICAL HISTORY: Reason for exam: pre-op. TECHNIQUE: Frontal view of the chest. COMPARISON: 08/10/2022 FINDINGS: Lungs: No consolidation. No overt edema. Pleural space: No pleural effusion. No pneumothorax. Heart: Unremarkable. No cardiomegaly. IMPRESSION: No acute cardiopulmonary abnormality. Electronically signed by: Wyatt Boo MD 02/23/25 21:10 PM
[2025-02-23] MEDS: BUPIVACAINE/EPINEPHRINE 0.5% MPF 1:200,000 30 ML VIAL ONE (22:44)
--- NOTE | 2025-02-23 22:55 | Operative Report ---
PG Post Operative Report Pre & Post Diagnosis Operation Date: 02/23/25 21:00 Pre-Op Diagnosis: Appendicitis Post-Op Diagnosis: Appendicitis I identified the patient and participated in the time-out.: Yes Procedure Operation Date: 02/23/25 21:00 Actual Procedures p Laparoscopic Appendectomy(Not Applicable) - Bird Cardoza DO Surgeon Bird Cardoza DO Wealth Management Advisor KAYCE Tellez Estimated Blood Loss 5 Findings See Below Infection involving the organ space Acute appendicitis, retro-ileocecal, nonperforated appendix Specimens Appendix Anesthesia Type General Complications None Indications 61-year-old female presented to the ED with abdominal pain, afebrile, hemodynamically stable with no leukocytosis. CT a/P revealed acute appendicitis. Description of Procedure The patient was brought back to the operating room and placed on the operating room table in supine position. She was connected to cardiac and oxygen monitoring, supplemental O2 was provided and SCDs were applied to bilateral lower extremities. The patient was administered general anesthesia and a secure airway was established. The abdomen was prepped and draped in typical sterile fashion and a timeout was conducted. Local anesthetic was used anesthetize the skin and subcutaneous tissues prior to making all incisions and all incisions were made with an 11 blade. Intra-abdominal access was gained at the infraumbilical fold using a Veress needle. Access was confirmed with a saline drop test. CO2 insufflation was initiated pneumoperitoneum was created to a goal pressure of 15 mmHg. Once this pressure was reached, a 5 mm trocar was inserted using direct visualization with a 5 mm laparoscope and an Optiview port. Under direct visualization, an additional 12 mm trocar was inserted the left lower quadrant and a 5 mm trocar at the suprapubic midline. The OR table was positioned in Trendelenburg and left side down. The cecum was identified in its usual anatomic location with adhesions surrounding to the omentum and pelvic sidewall. These adhesions were lysed in order to mobilize the cecum as it was securely tethered in location and would not allow for mobilization to help identify the appendix. The appendix was not readily identified at the base of the cecum as the base of the cecum was tucked up under itself. Eventually the appendix was identified densely secured to the underside of the cecum and very behind the mesentery of the terminal ileum. The appendix was then able to be mobilized and presented to the intra-abdominal space. It was thickened, nonperforated. Through Careful and kassandra dissection using alternating blunt and harmonic dissection and mobilization of the small bowel, the appendix was freed up and cleared all the way to its base. The appendix was ligated and transected away from the cecum using a purple loaded 45 mm Endo CARMITA stapler. Excess tanya that were discharged were suctioned away. The area was inspected for hemostasis and there was no evidence for bleeding. A small amount of gentle irrigation was used to clear the area of previous bleeding during dissection and suctioned away to be sure there was no evidence for bleeding. The appendix was placed in an Endo Catch bag. The OR table was returned to the neutral position and omentum was placed over the surgical site. Instruments were removed, the appendix was removed from the left lower quadrant incision and sent to pathology for further analysis. CO2 insufflation was discontinued and excess pneumoperitoneum was evacuated. The fascia of the left lower quadrant incision was closed using 0 Vicryl suture. Additional local anesthetic was injected into the subcutaneous tissues of the incision sites. The skin incisions were all approximated using 4-0 Vicryl suture. The abdomen was wiped clean with a saline soaked lap pad and dried. Dermabond was applied to incisions. The patient tolerated the procedure well. She was transferred to recovery in s table condition. The clinical data assistant played a critical role in this case to operate the camera to provide exposure as well as performed skin closure. I attest to the content of the Intraoperative Record and any orders documented therein. Any exceptions are noted below.
--- NOTE | 2025-02-23 23:11 | Anesthesiology Progress Note ---
Date of Service February 23, 2025 Anesthesia Post Procedure Vital Signs Vital Signs: Temp Pulse Pulse Resp BP BP Pulse Ox 02/23/25 23:05 36.4 C L 88 15 126/71 100 02/23/25 20:10 36.7 C 82 21 126/77 98 02/23/25 18:30 79 12 113/69 98 02/23/25 18:00 82 19 140/87 98 02/23/25 17:22 78 02/23/25 17:21 78 15 136/61 97 02/23/25 16:45 97 02/23/25 16:23 36.8 C 95 H 20 152/90 H 98 O2 Del Method O2 Flow Rate 02/23/25 23:05 Oxymask 8 02/23/25 20:10 Room Air 02/23/25 18:30 02/23/25 18:00 02/23/25 17:22 02/23/25 17:21 02/23/25 16:45 Room Air 02/23/25 16:23 Pain Intensity Left Abdomen: Pain Intensity: 8 Transfer of Care Handoff Completed per policy Notes Mental Status: alert / awake / arousable Patient Amnestic to Procedure: Yes Nausea / Vomiting: adequately controlled Pain: adequately controlled Airway Patency, RR, SpO2: stable & adequate BP & HR: stable & adequate Hydration State: stable & adequate Anesthetic Complications: no major complications apparent and Pt Satisfied with anesthetic care
[2025-02-23] MEDS: ONDANSETRON INJ 2 MG/ML 2 ML VIAL IV PRN (23:49)
[2025-02-24] MEDS: PIPERACILLIN/TAZOBACTAM 4.5 GM/100 ML BAG IV SCH (00:56)
[2025-02-24] MEDS: ACETAMINOPHEN 1,000 MG/100 ML VIAL IV PRN (06:10)
--- NOTE | 2025-02-24 09:06 | Surgery Progress Note ---
<Statement entered by Bird Cardoza, DO - 02/24/25 15:52> I have seen and examined this patient this am with the surgical team. I agree with this plan. Date of Service February 24, 2025 Assessment & Plan (1) Appendicitis: Plan: s/p lap appendectomy no labs this AM. vitals okay, last BP 115/61. HR 70s, afebrile will advance to fulls, once passing gas may transition to low fiber has + FALCON, recently received IV APAP Incisions c/d/i with dermabond pain in abdomen controlled encouraged OOB, if tolerates ambulating well and fulls may consider dispo s/p lunch discharge instructions reviewed, f/u in the office with dr. cardoza in 2 weeks Admission and Anticipated Discharge Date Admission Date: February 23, 2025 Subjective Patient feeling okay this AM. Does report a headache. Tolerating clears, no nausea/vomiting. Abdomen sore, but tolerable. Has not been OOB yet Physical Exam Physical Exam: awake/alert, no distress Gastrointestinal (Abdomen): Inspection/Auscultation: + abdominal surgical incision (c/d/i with dermabond); abdomen not distended Percussion/Palpation: + abdomen tender (expected post op discomfort) and abdomen soft Results & Data Vital Signs (Past 12 Hours) Vital Signs Temp Pulse Pulse Pulse Resp BP Pulse Ox 02/24/25 07:22 98.1 F 72 18 115/61 94 02/24/25 02:40 97.5 F L 84 16 103/62 96 02/24/25 01:40 98.1 F 86 16 108/68 95 02/24/25 00:40 97.7 F 76 16 105/69 97 02/24/25 00:10 97.5 F L 84 18 112/69 96 02/23/25 23:59 02/23/25 23:40 97.3 F L 83 16 108/63 98 02/23/25 23:31 97.7 F 88 21 114/71 95 02/23/25 23:21 97.7 F 86 15 119/69 97 02/23/25 23:11 97.3 F L 89 15 118/69 100 02/23/25 23:05 97.5 F L 88 15 126/71 100 O2 Del Method O2 Flow Rate 02/24/25 07:22 Room Air 02/24/25 02:40 Room Air 02/24/25 01:40 Room Air 02/24/25 00:40 Room Air 02/24/25 00:10 Room Air 02/23/25 23:59 Room Air 02/23/25 23:40 Room Air 02/23/25 23:31 Room Air 02/23/25 23:21 Room Air 02/23/25 23:11 Oxymask 4 02/23/25 23:05 Oxymask 8 PG Care Time/CCT Total # of Minutes Spent Total Time Spent with Patient: Total time spent is greater than 50% in coordination of care (as documented) at patient's floor/unit and/or counseling patient: Coding Level of Care Code 23514 Post Operative Follow-Up Diagnoses Appendicitis K37
--- NOTE | 2025-02-24 11:09 | Electrocardiogram Report ---
Test Reason : Blood Pressure : */* mmHG Vent. Rate : 85 BPM Atrial Rate : 85 BPM P-R Int : 156 ms QRS Dur : 76 ms QT Int : 414 ms P-R-T Axes : 35 -15 3 degrees QTcB Int : 492 ms Sinus rhythm with occasional Premature ventricular complexes Low voltage QRS Poor R wave progression, consider anterior FL vs. lead placement vs. LVH Abnormal ECG When compared with ECG of 22-Mar-2023 12:22, Premature ventricular complexes are now Present Non-specific change in ST segment in Lateral leads QT has lengthened Confirmed by Huy Downing ([id number]) on 02/24/2025 11:08:55 AM Referred By: REFERRED SELF Confirmed By: Huy Downing
[2025-02-24 11:50] VITALS: BP 112/62; PULSE 71; RESP 15; TEMP 97.4; O2SAT 96
== END 2025-02-24 15:22 | disposition home or self-care (01) | DRG 399 ==
LOC: ED 16:20 → OR 21:10 → 3N 22:59
DX: K37 Unspecified appendicitis